=== PATIENT | male | born 1995 | race Native Hawaiian/Other Pacific Islander ===

== ENCOUNTER 2018-10-16 06:16 | Emergency (ER) | payer OTHER ==
[~2018-10-16] VITALS: Ht 182.9 cm; Wt 113.4 kg
[2018-10-16 06:26] VITALS: TEMP 98.6
[2018-10-16 07:15] VITALS: BP 121/62
== END 2018-10-16 07:31 | disposition home or self-care (01) ==
LOC: ED 06:16
DX: J02.9 Acute pharyngitis, unspecified (principal)
CPT/HCPCS: 87502; 87651; 99283

== ENCOUNTER 2019-08-04 08:58 | Emergency (ER) | payer OTHER ==
[~2019-08-04] VITALS: Ht 182.9 cm; Wt 122.5 kg
[2019-08-04 09:27] VITALS: BP 133/79; TEMP 97.7
== END 2019-08-04 09:27 | disposition home or self-care (01) ==
LOC: ED 08:58
DX: T65.6X1A Toxic effect of paints and dyes, not elsewhere classified, accidental (unintentional), initial encounter (principal); T22.412A Corrosion of unspecified degree of left forearm, initial encounter; T32.0 Corrosions involving less than 10% of body surface
CPT/HCPCS: 99281

== ENCOUNTER 2019-10-19 23:34 | Emergency (ER) | payer OTHER ==
[~2019-10-19] VITALS: Ht 182.9 cm; Wt 122.5 kg
[2019-10-20 00:35] VITALS: BP 119/67; TEMP 97.9
== END 2019-10-20 00:35 | disposition home or self-care (01) ==
LOC: ED 23:34
DX: S60.511A Abrasion of right hand, initial encounter (principal); W22.8XXA Striking against or struck by other objects, initial encounter; Y93.89 Activity, other specified; Y92.89 Other specified places as the place of occurrence of the external cause
CPT/HCPCS: 90471; 90715; 99283

== ENCOUNTER 2020-01-06 07:04 | Emergency (ER) | payer OTHER ==
[~2020-01-06] VITALS: Ht 182.9 cm; Wt 124.7 kg
[2020-01-06 07:05] VITALS: TEMP 96.1
[2020-01-06 09:38] VITALS: BP 118/64
== END 2020-01-06 09:38 | disposition home or self-care (01) ==
LOC: ED 07:04
DX: J45.901 Unspecified asthma with (acute) exacerbation (principal); J06.9 Acute upper respiratory infection, unspecified; F17.210 Nicotine dependence, cigarettes, uncomplicated
CPT/HCPCS: 87502; 87651; 99283; J2930

== ENCOUNTER 2021-04-13 08:10 | Emergency (ER) | payer OTHER ==
[2021-04-19 15:32] LABS: PLATELET COUNT 216 K/uL (142-355)
[2021-04-19 15:33] LABS: POTASSIUM 4.1 mmol/L (3.6-5.2); SODIUM 139 mmol/L (136-145)
== END 2021-04-13 22:35 | disposition home or self-care (01) ==
LOC: ED 08:10
PROVIDERS: Emergency Medicine
DX: J45.909 Unspecified asthma, uncomplicated (principal); R06.09 Other forms of dyspnea; F17.210 Nicotine dependence, cigarettes, uncomplicated
CPT/HCPCS: 80048; 82550; 84484; 85027; 85379; 93005; 94664; 94760; 96372; 99283; J2920

== ENCOUNTER 2021-12-18 09:37 | Outpatient (CLI) | payer OTHER | END 2021-12-18 19:30 | disposition home or self-care (01) | LOC: LABW 09:37 | PROVIDERS: ATTEND Nurse Practitioner Family | DX: J02.0 Streptococcal pharyngitis (principal) | CPT/HCPCS: 87651 ==